=== PATIENT | male | born 1945 | race Caucasian/White ===

== ENCOUNTER → 2016-11-14 | Outpatient (CLI) | payer MEDICARE, OTHER | END | disposition home or self-care (01) | LOC: MW.CHIM 08:06 | PROVIDERS: ATTEND Internal Medicine | DX: Z12.5 Encounter for screening for malignant neoplasm of prostate (principal); E11.9 Type 2 diabetes mellitus without complications; E78.5 Hyperlipidemia, unspecified; I10 Essential (primary) hypertension; N40.0 Benign prostatic hyperplasia without lower urinary tract symptoms; D64.9 Anemia, unspecified | CPT/HCPCS: 36415; 80053; 80061; 83036; 83540; G0103 ==

== ENCOUNTER → 2016-11-15 | Outpatient (CLI) | payer MEDICARE, OTHER | LOC: MW.CHIM 08:00 | PROVIDERS: ATTEND Internal Medicine | DX: E11.65 Type 2 diabetes mellitus with hyperglycemia (principal); E78.5 Hyperlipidemia, unspecified; R91.1 Solitary pulmonary nodule; E66.9 Obesity, unspecified | CPT/HCPCS: 99214 ==

== ENCOUNTER → 2016-11-16 | Outpatient (CLI) | payer MEDICARE, OTHER ==
--- NOTE | 2016-11-16 15:54 | CT ---
EXAMINATION: CT chest without contrast HISTORY: Solitary pulmonary nodule COMPARISON: 06/23/2016 TECHNIQUE: Axial CT images obtained through the chest without contrast. Coronal and sagittal reconst ructions obtained. FINDINGS: There is a stable 7 to 8 mm pleural-based pulmonary nodule within the left lower lobe late rally. Otherwise the lungs are clear without focal consolidation. No pleural effusion or pneumothora x. The heart is normal in size without a pericardial effusion. Coronary artery calcifications are pr esent. No mediastinal lymphadenopathy or hilar fullness. No axillary lymphadenopathy. The thoracic a yehuda is normal in caliber. Central airways are clear. Colonic diverticula noted. Otherwise The visualized images of the upper abdomen appear normal. No suspicious osseous abnormalities identified. IMPRESSION: 1. Stable 8 mm pulmonary nodule within the left lower lobe, technically benign. 2. Prominent coronary artery calcifications.
== END ==
LOC: MW.DI 13:40
PROVIDERS: ATTEND Internal Medicine
DX: R91.1 Solitary pulmonary nodule (principal)
CPT/HCPCS: 71250; 71250-26

== ENCOUNTER 2017-03-01 14:08 | Emergency (ER) | payer MEDICARE, OTHER ==
--- NOTE | 2017-03-01 14:27 | EDM.PDOC ---
ED HPI GENERAL MEDICAL PROBLEM - General Chief Complaint: Genitourinary Problem Stated Complaint: BACK PAIN AND BLOOD IN THE URINE Time Seen by Provider: 03/01/17 14:22 Source of Information: Reports: Patient History Limitations: Reports: No Limitations - History of Present Illness INITIAL COMMENTS - FREE TEXT/NARRATIVE: HISTORY AND PHYSICAL: [] 71-year-old male presents with hematuria 3 days History of Present Illness: No injury reported. Slight lower back pain noted with this bleeding in urine. He did have some burning with urination. No blood in the urine last night Patient has history of hypertension Diabetes mellitus type 2 History of lower gastrointestinal bleeding [] Review of Systems: As per history of present illness and below otherwise all systems reviewed and negative. Past medical history: As per history of present illness and as reviewed below otherwise noncontributory. Surgical history: As per history of present illness and as reviewed below otherwise noncontributory. Social history: No reported history of drug or alcohol abuse. Family history: As per history of present illness and as reviewed below otherwise noncontributory. Physical exam: Alert and oriented gentleman, answering questions appropriately in full sentences. HEENT: Atraumatic, normocehpalic, pupils reactive, negative for conjunctival pallor or scleral icterus, mucous membranes moist, throat clear, neck supple, nontender, trachea midline. Lungs: Clear to auscultation, breath sounds equal bilaterally, chest non tender. Heart: S1S2, regular, negative for clicks, rubs, or JVD. Abdomen: Soft, nondistended, nontender. Negative for masses or hepatossplenmegaly. Negative for costovertebral tenderness. Pelvis: Stable nontender. Genitourinary: Deferred. Rectal: Deferred Extremities: Atraumatic, negative for cords or calf pain. Neurovascular unremarkable. Neuro: Awake, alert, oriented. Cranial nerves II through XII unremarkable. Cerebellum unremarkable. Motor and sensory unremarkable throughout. Exam nonfocal. Diagnostics: UA with culture[] Therapeutics: [] Impression: [] Plan: [] Definitive disposition and diagnosis as appropriate pending reevaluation and review of above. Onset: Sudden Duration: Day(s): (3) Left Lower Flank Pain Score (Numeric/FACES): 3 - Related Data Allergies Allergy/AdvReac Type Severity Reaction Status Date / Time No Known Allergies Allergy Verified 07/27/17 14:23 Home Meds: Home Meds Atenolol [Tenormin] DAILY 01/04/15 [History] Canagliflozin [Invokana] 300 DAILY 01/04/15 [History] Insulin Detemir [Levemir] 22 unit BEDTIME 01/04/15 [History] Losartan [Cozaar] DAILY 01/04/15 [History] amLODIPine Besylate [Amlodipine Besylate] DAILY 01/04/15 [History] metFORMIN [Glucophage] BID 01/04/15 [History] Ciprofloxacin HCl [Cipro] 500 mg PO Q12HR #14 tablet 03/01/17 [Rx] Past Medical History Other HEENT History: hearing aide to right ear Social & Family History - Tobacco Use Smoking Status *Q: Never Smoker Second Hand Smoke Exposure: No - Alcohol Use Days Per Week of Alcohol Use: 0 - Recreational Drug Use Recreational Drug Use: No ED ROS GENERAL - Review of Systems Review Of Systems: ROS reveals no pertinent complaints other than HPI. ED EXAM, RENAL/ - Physical Exam Exam: See Below (see dictation) Course - Vital Signs Last Recorded V/S: Last Vital Signs Temp 36.2 C 03/01/17 14:18 Pulse 96 03/01/17 14:18 Resp 16 03/01/17 14:18 BP 153/67 H 03/01/17 14:18 Pulse Ox 96 03/01/17 14:18 - Orders/Labs/Meds Orders: Active Orders 24 hr Category Date Time Status CULTURE URINE [RM] Stat Lab 03/01/17 14:35 Received Labs: Laboratory Tests 03/01/17 Range/Units 14:35 Urine Color YELLOW Urine Appearance CLEAR Urine pH 6.0 (5.0-8.0) Ur Specific Burton <= 1.005 (1.001-1.035) Urine Protein NEGATIVE (NEGATIVE) mg/dL Urine Glucose (UA) >=1000 (NEGATIVE) mg/dL Urine Ketones NEGATIVE (NEGATIVE) mg/dL Urine Occult Blood LARGE H (NEGATIVE) Urine Nitrite NEGATIVE (NEGATIVE) Urine Bilirubin NEGATIVE (NEGATIVE) Urine Urobilinogen 0.2 (<2.0) EU/dL Ur Leukocyte Esterase SMALL (NEGATIVE) Urine RBC 20-25 (0-2/HPF) Urine WBC 15-20 (0-5/HPF) Ur Epithelial Cells FEW (NONE-FEW) Urine Bacteria FEW (NEGATIVE) Departure - Departure Time of Disposition: :24 Disposition: Home, Self-Care 01 Condition: Good Clinical Impression: UTI, Urinary tract infectious disease - Discharge Information Prescriptions: Ciprofloxacin HCl [Cipro] 500 mg PO Q12HR #14 tablet Instructions: Urinary Tract Infection, Adult, [id number] Referrals: Gustavo Shea MD [Primary Care Provider] - Belén Greenfield MD [Physician] - Forms: ED Department Discharge Additional Instructions: The following information is given to patients seen in the emergency department who are being discharged to home. This information is to outline your options for follow-up care. We provide all patients seen in our emergency department with a follow-up referral. The need for follow-up, as well as the timing and circumstances, are variable depending upon the specifics of your emergency department visit. If you don't have a primary care physician on staff, we will provide you with a referral. We always advise you to contact your personal physician following an emergency department visit to inform them of the circumstance of the visit and for follow-up with them and/or the need for any referrals to a consulting specialist. The emergency department will also refer you to a specialist when appropriate. This referral assures that you have the opportunity for followup care with a specialist. All of these measure are taken in an effort to provide you with optimal care, which includes your followup. Under all circumstances we always encourage you to contact your private physician who remains a resource for coordinating your care. When calling for followup care, please make the office aware that this follow-up is from your recent emergency room visit. If for any reason you are refused follow-up, please contact the [facility] emergency department at and asked to speak to the emergency department charge nurse. You have been found to have a urinary tract infection Prescription for ciprofloxacin 500 mg twice a day 7 days electronically sent to [facility] Referral has been made to follow-up with Dr. Gin DEVINE [facility] Specialty [facility] - Urology [address] [place] [id number] - My Orders Last 24 Hours: My Active Orders 03/01/17 14:35 CULTURE URINE [RM] Stat - Assessment/Plan Last 24 Hours: My Active Orders 03/01/17 14:35 CULTURE URINE [RM] Stat
[2017-03-01 15:54] VITALS: BP 136/71
== END 2017-03-01 15:45 | disposition home or self-care (01) ==
LOC: MW.ED 14:08
DX: N39.0 Urinary tract infection, site not specified (principal); I10 Essential (primary) hypertension; E11.9 Type 2 diabetes mellitus without complications; Z79.899 Other long term (current) drug therapy
CPT/HCPCS: 81001; 87086; 87088; 87186; 99283

== ENCOUNTER 2017-06-15 13:40 | Emergency (ER) | payer MEDICARE, OTHER ==
[2017-06-15] MEDS ORDERED: Diphtheria,Pertussis(Acell),Tetanus Vaccine 0.5 ML Syringe IM ONE (14:02)
[2017-06-15] MEDS ORDERED: Lidocaine 1% 20 ML MDV INJECT ONE (14:03)
[2017-06-15] MEDS ORDERED: Bacitracin Oint 1 GM U/D Packet TOP ONE (14:03)
--- NOTE | 2017-06-15 14:29 | EDM.PDOC ---
ED HPI GENERAL MEDICAL PROBLEM - General Chief Complaint: Laceration Stated Complaint: CUT ON INDEX FINGER ON LT HAND Time Seen by Provider: 06/15/17 13:42 - History of Present Illness INITIAL COMMENTS - FREE TEXT/NARRATIVE: HISTORY AND PHYSICAL: History of present illness: Patient is a 72-year-old male who presents to the emergency room with complaints of laceration to his left index finger. He states he was putting in some osman and had cut it with a knife resulting in a U-shaped laceration in the MIP joint. She reports he is very active and does not think that glue or Steri-Strips would keep the site secured. Review of systems: As per history of present illness and below otherwise all systems reviewed and negative. Past medical history: As per history of present illness and as reviewed below otherwise noncontributory. Surgical history: As per history of present illness and as reviewed below otherwise noncontributory. Social history: No reported history of drug or alcohol abuse. Family history: As per history of present illness and as reviewed below otherwise noncontributory. Physical exam: HEENT: Atraumatic, normocephalic, pupils reactive, negative for conjunctival pallor or scleral icterus, mucous membranes moist, throat clear, neck supple, nontender, trachea midline. Lungs: Clear to auscultation, breath sounds equal bilaterally, chest nontender. Heart: S1S2, regular, negative for clicks, rubs, or JVD. Abdomen: Soft, nondistended, nontender. Negative for masses or hepatosplenomegaly. Negative for costovertebral tenderness. Pelvis: Stable nontender. Genitourinary: Deferred. Rectal: Deferred. Extremities: Moves all extremities per self negative for cords or calf pain. Neurovascular unremarkable. Skin:1.5 cm laceration, "U" shape over the MIP joint of the left index finger. No tendon involvement as the patient has good flexion and dorsiflexion. Good strength when pushing against my finger. Capillary refill less than 3 seconds. Neuro: Awake, alert, oriented. Cranial nerves II through XII unremarkable. Cerebellum unremarkable. Motor and sensory unremarkable throughout. Exam nonfocal. Diagnostics: None Therapeutics: Tetanus booster 1% lidocaine Bacitracin dressing 3 mL's of 1% lidocaine were used to anesthetize the area. The laceration was cleansed with water and chlorhexidine. The wound was irrigated with wound wash. 4-0 nylon was used. 3 interrupted stitches were done. Patient tolerated well Impression: Laceration Plan: 1. Please use the spoon splint that prevents the finger from flexing for the next 24-48 hours. After that time please be careful with your movement as I do not want the stitches to pop open. Keep the area clean and dry. Do not submerge in water for long periods of time. Monitor for signs of infection. Stitches need to be removed in 10 days. 2. Tylenol or ibuprofen as needed for pain management. 3. Follow-up with your primary care provider in the next 1-2 days. Return to the ED as needed and as discussed. Definitive disposition and diagnosis as appropriate pending reevaluation and review of above. Onset: Today Duration: Minutes: Location: Reports: Upper Extremity, Left - Related Data Allergies Allergy/AdvReac Type Severity Reaction Status Date / Time No Known Allergies Allergy Verified 06/15/17 13:51 Home Meds: Home Meds Atenolol [Tenormin] 50 mg PO DAILY 01/04/15 [History] Insulin Detemir [Levemir] 25 unit SQ BEDTIME 01/04/15 [History] Losartan [Cozaar] 50 mg PO DAILY 01/04/15 [History] amLODIPine Besylate [Amlodipine Besylate] 5 mg PO DAILY 01/04/15 [History] metFORMIN [Glucophage] 1,000 mg PO BID 01/04/15 [History] Aspirin [Lo-Dose Aspirin EC] 81 mg PO DAILY 03/01/17 [History] Canagliflozin [Invokana] 300 mg PO DAILY 03/01/17 [History] Nitroglycerin [Nitrostat] 0.4 mg SL Q5M PRN 03/01/17 [History] atorvaSTATin [Lipitor] 10 mg PO BEDTIME 03/01/17 [History] Past Medical History HEENT History: Reports: Hard of Hearing Other HEENT History: hearing aide to right ear Cardiovascular History: Reports: Angina, Stents Genitourinary History: Reports: Renal Calculus Endocrine/Metabolic History: Reports: Diabetes, Type II - Infectious Disease History Infectious Disease History: Reports: Chicken Pox, Measles, Mumps - Past Surgical History GI Surgical History: Reports: Appendectomy Social & Family History - Family History Family Medical History: Noncontributory - Tobacco Use Smoking Status *Q: Never Smoker Second Hand Smoke Exposure: No - Caffeine Use Caffeine Use: Reports: Coffee Caffeine Use Comment: 3-5 cups daily - Alcohol Use Days Per Week of Alcohol Use: 0 - Recreational Drug Use Recreational Drug Use: No ED ROS GENERAL - Review of Systems Review Of Systems: ROS reveals no pertinent complaints other than HPI. ED EXAM, SKIN/RASH Exam: See Below (See dictation) ED SKIN PROCEDURES - Laceration/Wound Repair Left Finger Lac/Wound length In cm: 1.5 Appearance: Superficial Distal NVT: Neuro & Vascular Intact, No Tendon Injury Local Anesthesia - Lidocaine (Xylocaine): 1% Plain Local Anesthetic Volume: 3cc Saline Irrigation (cc's): 30 Exploration/Debridement/Repair: Wound Explored, In a Bloodless Field, Explored to Base Suture Size: 4-0 # of Sutures: 3 Suture Type: Nylon Course - Vital Signs Last Recorded V/S: Last Vital Signs Temp 36.3 C 06/15/17 13:48 Pulse 78 06/15/17 13:48 Resp 16 06/15/17 13:48 BP 144/79 H 06/15/17 13:48 Pulse Ox 94 L 06/15/17 13:48 - Orders/Labs/Meds Orders: Active Orders 24 hr Category Date Time Status Vaccines to be Administered [RC] PER UNIT ROUTINE Care 06/15/17 14:03 Active Meds: Medications Discontinued Medications Generic Name Dose Route Start Last Admin Trade Name Ricoq PRN Reason Stop Dose Admin Bacitracin 1 dose 06/15/17 14:03 Bacitracin Oint 1 Gm TOP 06/15/17 14:04 ONETIME ONE Diphtheria/Tetanus/Acell Pertussis 0.5 ml 06/15/17 14:02 06/15/17 14:28 Adacel IM 06/15/17 14:03 0.5 ml .ONCE ONE Administration Lidocaine HCl 20 ml 06/15/17 14:03 06/15/17 14:28 Xylocaine 1% INJECT 06/15/17 14:04 20 ml ONETIME ONE Administration Departure - Departure Time of Disposition: 14:29 Disposition: Home, Self-Care 01 Clinical Impression: Laceration - Discharge Information Referrals: Gustavo Shea MD [Primary Care Provider] - Forms: ED Department Discharge Additional Instructions: My general discharge The following information is given to patients seen in the emergency department who are being discharged to home. This information is to outline your options for follow-up care. We provide all patients seen in our emergency department with a follow-up referral. The need for follow-up, as well as the timing and circumstances, are variable depending upon the specifics of your emergency department visit. If you don't have a primary care physician on staff, we will provide you with a referral. We always advise you to contact your personal physician following an emergency department visit to inform them of the circumstance of the visit and for follow-up with them and/or the need for any referrals to a consulting specialist. The emergency department will also refer you to a specialist when appropriate. This referral assures that you have the opportunity for follow-up care with a specialist. All of these measure are taken in an effort to provide you with optimal care, which includes your follow-up. Under all circumstances we always encourage you to contact your private physician who remains a resource for coordinating your care. When calling for follow-up care, please make the office aware that this follow-up is from your recent emergency room visit. If for any reason you are refused follow-up, please contact the [facility] Emergency Department at and asked to speak to the emergency department charge nurse. [facility] [address] [place] [id number] 1. Please use the spoon splint that prevents the finger from flexing for the next 24-48 hours. After that time please be careful with your movement as I do not want the stitches to pop open. Keep the area clean and dry. Do not submerge in water for long periods of time. Monitor for signs of infection. Stitches need to be removed in 7- 10 days. 2. Tylenol or ibuprofen as needed for pain management. 3. Follow-up with your primary care provider in the next 1-2 days. Return to the ED as needed and as discussed. - My Orders Last 24 Hours: My Active Orders 06/15/17 14:03 Vaccines to be Administered [RC] PER UNIT ROUTINE - Assessment/Plan Last 24 Hours: My Active Orders 06/15/17 14:03 Vaccines to be Administered [RC] PER UNIT ROUTINE
[2017-06-15 14:53] VITALS: BP 149/77
== END 2017-06-15 14:45 | disposition home or self-care (01) ==
LOC: MW.ED 13:40
DX: S61.211A Laceration without foreign body of left index finger without damage to nail, initial encounter (principal); E11.9 Type 2 diabetes mellitus without complications; Z79.4 Long term (current) use of insulin; Z79.82 Long term (current) use of aspirin; Z79.899 Other long term (current) drug therapy; Z23 Encounter for immunization; W26.0XXA Contact with knife, initial encounter
CPT/HCPCS: 12001; 90471; 90715; 99282-25; 99283

== ENCOUNTER 2017-10-08 06:41 | Day surgery (SDC) | payer MEDICARE, OTHER ==
[~2017-10-08 06:41] MED LIST: Lactated Ringers 1,000 ML IV SCH
[2017-10-08] MEDS ORDERED: Propofol 200 MG/20 ML SDV ONE (07:20)
[2017-10-08] MEDS ORDERED: fentaNYL 100 MCG/2 ML SDV ONE (07:20)
[2017-10-08] MEDS ORDERED: Midazolam 1 MG/ML 2 ML SDV ONE (07:21)
[2017-10-08] MEDS ORDERED: Bupivacaine 0.5% 30 ML SDV ONE (07:26)
[2017-10-08] MEDS ORDERED: Lidocaine 1% 20 ML MDV ONE (07:27)
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
[2017-10-08] MEDS ORDERED: Bupivacaine 0.5% 10 ML SDV ONE (07:39)
[2017-10-08] MEDS ORDERED: diphenhydrAMINE 50 MG/ML SDV ONE (08:03)
[2017-10-08] MEDS ORDERED: Ondansetron 4 MG/2 ML SDV ONE (08:03)
[2017-10-08] MEDS ORDERED: Lidocaine 2% 5 ML SDV ONE (08:03)
[2017-10-08] MEDS ORDERED: ePHEDrine 50 MG/ML SDV ONE (08:42)
--- NOTE | 2017-10-08 09:01 | PCM.OPNOTE ---
- General Post-Op/Procedure Note Date of Surgery/Procedure: 10/08/17 Operative Procedure(s): Excision 1.1 cm ulcerated scalp lesion with 3 cm layered closure Pre Op Diagnosis: Ulcerated scalp lesion Post-Op Diagnosis: Same Anesthesia Technique: General LMA (ASA II) Primary Surgeon: Guevara Handley Secondary Surgeon: Aron Lofton Fluid Replacement, Intraop: 800 EBL in mLs: 2 Condition: Good Free Text/Narrative:: Dictation [id number] CPT CODE [id number]
[2017-10-08] MEDS ORDERED: Acetaminophen/HYDROcodone 325-5 MG Tab PO PRN (09:06)
[2017-10-08] MEDS ORDERED: Lactated Ringers 1,000 ML IV SCH (09:15)
--- NOTE | 2017-10-08 10:10 | OR ---
SURGEON: Guevara Handley M.D. DATE OF PROCEDURE: 10/08/2017 OPERATION PERFORMED: Excision of 1.1 cm ulcerated scalp lesion with 3 cm layered closure. CORPORATE COMMUNICATIONS MANAGER: Dr. Rodrigues, PGY 3. ANESTHESIA: General LMA. ASA CLASSIFICATION: II. INTRAOPERATIVE FLUID REPLACEMENT: 800 mL of crystalloid. ESTIMATED BLOOD LOSS: 2 mL. DESCRIPTION OF PROCEDURE: The patient was taken to the operating room and placed on the operating table in the supine position. Time-out was called for appropriate identification of the patient and procedure. Surgical site had been marked prior to the patient entering the operating room. Following satisfactory attainment of general anesthesia with placement of an LMA, the surgical site was prepped with Betadine solution. Sterile drapes were applied. The surgical incision was then infiltrated with 1% xylocaine. The skin incision was made in an elliptical fashion completely excising the lesion in question using electrocautery. A suture was placed at the superior/anterior margin for identification purposes. Frozen section was sent off. The wound was then inspected for hemostasis and bleeding sites were electrocoagulated. The incision was closed in 2 layers approximating the subcutaneous tissue with interrupted 3-0 Vicryl and the skin with running locked 3-0 nylon. Following confirmation of the frozen section, the wound was dressed with antibiotic ointment. Sponge, needle, and instrument counts were all correct. The patient tolerated the procedure well. Following emergence from anesthesia and extubation, the patient was taken to recovery room in satisfactory condition. DUANE / DONA /[id number]
--- NOTE | 2017-10-08 10:20 | PCM48HPAN ---
Post Anesthesia Note - EVALUATION WITHIN 48HRS OF ANESTHETIC Vital Signs in Normal Range: Yes Patient Participated in Evaluation: Yes Respiratory Function Stable: Yes Airway Patent: Yes Cardiovascular Function Stable: Yes Hydration Status Stable: Yes Pain Control Satisfactory: Yes Nausea and Vomiting Control Satisfactory: Yes Mental Status Recovered: Yes Resp Rate: 17 - COMMENTS/OBSERVATIONS Free Text/Narrative:: no anesthesia problems
[2017-10-08 12:40] VITALS: BP 142/74
== END 2017-10-08 10:40 | disposition home or self-care (01) ==
LOC: MW.SDS 06:41
PROVIDERS: ATTEND Surgery
DX: C44.41 Basal cell carcinoma of skin of scalp and neck (principal); N40.0 Benign prostatic hyperplasia without lower urinary tract symptoms; I25.10 Atherosclerotic heart disease of native coronary artery without angina pectoris; E11.9 Type 2 diabetes mellitus without complications; E78.5 Hyperlipidemia, unspecified; I10 Essential (primary) hypertension; Z79.82 Long term (current) use of aspirin; Z79.899 Other long term (current) drug therapy; Z90.49 Acquired absence of other specified parts of digestive tract
CPT/HCPCS: 11622; 12032; 82962; J1200; J2250; J2405; J3010; J7120; 00300; 88305; 88331; J2704

== ENCOUNTER 2019-01-03 13:50 | Emergency (ER) | payer MEDICARE, OTHER ==
--- NOTE | 2019-01-03 14:04 | EDM.PDOC ---
ED HPI GENERAL MEDICAL PROBLEM - General Chief Complaint: ENT Problem Stated Complaint: HEARING AIDS STUCK IN EAR Time Seen by Provider: 01/03/19 13:54 Source of Information: Reports: Patient History Limitations: Reports: No Limitations - History of Present Illness INITIAL COMMENTS - FREE TEXT/NARRATIVE: HISTORY AND PHYSICAL: History of present illness: Patient is a 73-year-old male who presents to the emergency room with complaints of foreign body in the left ear. He states approximately 2 hours ago he removed his hearing aide and noticed the plastic tip was not on the hearing aid and felt it in his canal. He states his tried to remove this herself, but "I felt it going deeper". Patient denies any fever, chills, headache, change in vision, syncope or near syncope. Denies any chest pain, back pain, shortness of breath or cough. Denies any abdominal pain, nausea, vomiting, diarrhea, constipation or dysuria. Has not noted any blood in urine or stool. Patient has been eating and drinking appropriately. Review of systems: As per history of present illness and below otherwise all systems reviewed and negative. Past medical history: As per history of present illness and as reviewed below otherwise noncontributory. Surgical history: As per history of present illness and as reviewed below otherwise noncontributory. Social history: See social history for further information Family history: As per history of present illness and as reviewed below otherwise noncontributory. Physical exam: General: Well-developed and well-nourished 73-year-old male. Alert and oriented. Nontoxic appearing and in no acute distress. HEENT: Atraumatic, normocephalic, pupils equal and reactive bilaterally, negative for conjunctival pallor or scleral icterus, mucous membranes moist, foreign body noted in the left TM, right TMs normal, throat clear, neck supple, nontender, trachea midline. No drooling or trismus noted. No meningeal signs. No hot potato voice noted. Skin: Intact, warm, dry. No lesions or rashes noted. Extremities: Atraumatic, moves all extremities per self without difficulty or deficits, negative for cords or calf pain. Neurovascular unremarkable. Neuro: Awake, alert, oriented. Cranial nerves II through XII unremarkable. Cerebellum unremarkable. Motor and sensory unremarkable throughout. Exam nonfocal. Notes: Foreign body was easily removed with an alligator forcep. Post extraction, TM is normal without erythema or any evidence of trauma. Supportive care measures were reviewed and discussed. Voices understanding and is agreeable to plan of care. Denies any further questions or concerns at this time. Diagnostics: None Therapeutics: Foreign body removal Prescription: In Impression: Foreign body left ear Plan: 1. Please fix the hearing aid before putting it back in your ear. 2. Follow-up with your primary care provider as needed. Return to the ED as needed and as discussed. Definitive disposition and diagnosis as appropriate pending reevaluation and review of above. Onset: Today Duration: Hour(s): - Related Data Allergies Allergy/AdvReac Type Severity Reaction Status Date / Time No Known Allergies Allergy Verified 01/03/19 14:03 Home Meds: Home Meds Atenolol [Tenormin] 50 mg PO DAILY 01/04/15 [History] Insulin Detemir [Levemir] 22 unit SQ BEDTIME 01/04/15 [History] Losartan [Cozaar] 50 mg PO BEDTIME 01/04/15 [History] amLODIPine Besylate [Amlodipine Besylate] 5 mg PO DAILY 01/04/15 [History] metFORMIN [Glucophage] 1,000 mg PO BID 01/04/15 [History] Aspirin [Lo-Dose Aspirin EC] 81 mg PO DAILY 03/01/17 [History] Nitroglycerin [Nitrostat] 0.4 mg SL Q5M PRN 03/01/17 [History] atorvaSTATin [Lipitor] 10 mg PO BEDTIME 03/01/17 [History] Fraxiga 5 mg PO DAILY 10/03/17 [History] Ubidecarenone [Coq-10] 1 tab PO BID 10/03/17 [History] Past Medical History HEENT History: Reports: Hard of Hearing Other HEENT History: hearing aide to right ear Cardiovascular History: Reports: Angina, CAD, High Cholesterol, Hypertension, Stents Gastrointestinal History: Reports: Other (See Below) Other Gastrointestinal History: diverticulitis Genitourinary History: Reports: BPH, Renal Calculus Musculoskeletal History: Reports: Fracture Other Musculoskeletal History: hx fx collarbone as a child Neurological History: Reports: None Psychiatric History: Reports: None Endocrine/Metabolic History: Reports: Diabetes, Type II Dermatologic History: Reports: None - Infectious Disease History Infectious Disease History: Reports: Chicken Pox, Measles, Mumps - Past Surgical History Head Surgeries/Procedures: Reports: None Cardiovascular Surgical History: Reports: Coronary Artery Stent GI Surgical History: Reports: Appendectomy Musculoskeletal Surgical History: Reports: Other (See Below) Social & Family History - Family History Family Medical History: Noncontributory - Caffeine Use Caffeine Use: Reports: Coffee Caffeine Use Comment: 3-5 cups daily ED ROS ENT - Review of Systems Review Of Systems: ROS reveals no pertinent complaints other than HPI. ED EXAM, ENT - Physical Exam Exam: See Below (See dictation) Departure - Departure Time of Disposition: 14:03 Disposition: Home, Self-Care 01 Clinical Impression: Foreign body in left ear Qualifiers: Encounter type: initial encounter Qualified Code(s): T16.2XXA - Foreign body in left ear, initial encounter - Discharge Information Instructions: Ear Foreign Body, [id number] Referrals: Gustavo Shea MD [Primary Care Provider] - Forms: ED Department Discharge Additional Instructions: The following information is given to patients seen in the emergency department who are being discharged to home. This information is to outline your options for follow-up care. We provide all patients seen in our emergency department with a follow-up referral. The need for follow-up, as well as the timing and circumstances, are variable depending upon the specifics of your emergency department visit. If you don't have a primary care physician on staff, we will provide you with a referral. We always advise you to contact your personal physician following an emergency department visit to inform them of the circumstance of the visit and for follow-up with them and/or the need for any referrals to a consulting specialist. The emergency department will also refer you to a specialist when appropriate. This referral assures that you have the opportunity for follow-up care with a specialist. All of these measure are taken in an effort to provide you with optimal care, which includes your follow-up. Under all circumstances we always encourage you to contact your private physician who remains a resource for coordinating your care. When calling for follow-up care, please make the office aware that this follow-up is from your recent emergency room visit. If for any reason you are refused follow-up, please contact the [facility] Emergency Department at and asked to speak to the emergency department charge nurse. [facility] [address] [place] [address] [facility] [address] [place] [id number] 1. Please fix the hearing aid before putting it back in your ear. 2. Follow-up with your primary care provider as needed. Return to the ED as needed and as discussed.
[2019-01-03 14:06] VITALS: BP 107/84
== END 2019-01-03 14:12 | disposition home or self-care (01) ==
LOC: MW.ED 13:50
DX: T16.2XXA Foreign body in left ear, initial encounter (principal); E11.9 Type 2 diabetes mellitus without complications; I10 Essential (primary) hypertension; I48.91 Unspecified atrial fibrillation; E78.00 Pure hypercholesterolemia, unspecified; I25.10 Atherosclerotic heart disease of native coronary artery without angina pectoris; Z79.4 Long term (current) use of insulin; Z79.82 Long term (current) use of aspirin; Z79.899 Other long term (current) drug therapy
CPT/HCPCS: 69200; 99282

== ENCOUNTER 2019-11-11 06:30 | Observation (INO) | payer MEDICARE, OTHER ==
[~2019-11-11 06:30] MED LIST changes: -Lactated Ringers 1,000 ML IV SCH; +Sodium Chloride 0.9% 10 ML SDV IV PRN; +Sodium Chloride 0.9% 10 ML Syringe FLUSH PRN; +Sodium Chloride 0.9% 2.5 ML Syringe FLUSH PRN; +ceFAZolin 1 GM in Premix Bag 1 BAG IV ONE
[2019-11-11] MEDS: Lactated Ringers 1,000 ML IV SCH ×2 (07:05→18:21)
--- NOTE | 2019-11-11 07:22 | PCM.PREANE ---
Preanesthetic Assessment - Anesthesia/Transfusion/Family Hx Anesthesia History: Prior Anesthesia Without Reaction Family History of Anesthesia Reaction: No Transfusion History: No Prior Transfusion(s) Intubation History: Unknown - Review of Systems General: No Symptoms Pulmonary: No Symptoms Cardiovascular: No Symptoms Gastrointestinal: No Symptoms Neurological: No Symptoms Other: Reports: None - Physical Assessment Height: 5 ft 11 in Weight: 96.615 kg ASA Class: 3 Mental Status: Alert & Oriented x3 Airway Class: Mallampati = 2 Dentition: Reports: Normal Dentition Thyro-Mental Finger Breadths: 3 Mouth Opening Finger Breadths: 3 ROM/Head Extension: Full Lungs: Clear to Auscultation, Normal Respiratory Effort Cardiovascular: Regular Rate, Regular Rhythm - Lab Values: Laboratory Last Values POC Glucose 143 mg/dL (60-110) H 11/11/19 07:03 - Allergies Allergies/Adverse Reactions: Allergies Allergy/AdvReac Type Severity Reaction Status Date / Time No Known Allergies Allergy Verified 11/06/19 09:37 - Blood Blood Available: No - Anesthesia Plan Pre-Op Medication Ordered: None - Acknowledgements Anesthesia Type Planned: Spinal (general anesthesia back up plan) Pt an Appropriate Candidate for the Planned Anesthesia: Yes Alternatives and Risks of Anesthesia Discussed w Pt/Guardian: Yes Pt/Guardian Understands and Agrees with Anesthesia Plan: Yes PreAnesthesia Questionnaire HEENT History: Reports: Hard of Hearing Other HEENT History: hearing aide to right ear Cardiovascular History: Reports: Angina, CAD, High Cholesterol, Hypertension, Stents (x2 10-11 years ago, stress test about 3 months ago with chest tightness at peak excercize, has distal disease, walks 2-3 hours without CP or SOB) Gastrointestinal History: Reports: Other (See Below) Other Gastrointestinal History: diverticulitis Genitourinary History: Reports: BPH, Renal Calculus Musculoskeletal History: Reports: Fracture Other Musculoskeletal History: hx fx collarbone as a child Neurological History: Reports: None Psychiatric History: Reports: None Endocrine/Metabolic History: Reports: Diabetes, Type II Oncologic (Cancer) History: Reports: Basal Cell Carcinoma Other Oncologic History: removed from head Dermatologic History: Reports: None - Infectious Disease History Infectious Disease History: Reports: Chicken Pox, Measles, Mumps - Past Surgical History Cardiovascular Surgical History: Reports: Coronary Artery Stent, Other (See Below) (coronary angiogram) GI Surgical History: Reports: Appendectomy Other Musculoskeletal Surgeries/Procedures:: Patient states hes had a left knee surgery - SUBSTANCE USE Smoking Status *Q: Never Smoker Recreational Drug Use History: No - HOME MEDS Home Medications: Home Meds Insulin Detemir [Levemir] 30 unit SQ BEDTIME 01/04/15 [History] Losartan [Cozaar] 50 mg PO BEDTIME 01/04/15 [History] amLODIPine Besylate [Amlodipine Besylate] 5 mg PO QAM 01/04/15 [History] atenoloL [Tenormin] 50 mg PO QAM 01/04/15 [History] metFORMIN [Glucophage] 1,000 mg PO BID 01/04/15 [History] Aspirin [Lo-Dose Aspirin EC] 81 mg PO DAILY 03/01/17 [History] Nitroglycerin [Nitrostat] 0.4 mg SL Q5M PRN MDD 3 doses 03/01/17 [History] atorvaSTATin [Lipitor] 10 mg PO BEDTIME 03/01/17 [History] Ubidecarenone [Coq-10] 1 tab PO BID 10/03/17 [History] - CURRENT (IN HOUSE) MEDS Current Meds: Current Medications Lactated Ringer's (Ringers, Lactated) 1,000 mls @ 100 mls/hr IV ASDIRECTED IRVIN Sodium Chloride (Saline Flush) 10 ml FLUSH ASDIRECTED PRN PRN Reason: Keep Vein Open Sodium Chloride (Saline Flush) 2.5 ml FLUSH ASDIRECTED PRN PRN Reason: Keep Vein Open Sodium Chloride (Normal Saline) 10 ml IV ASDIRECTED PRN PRN Reason: IV Use Discontinued Medications Cefazolin Sodium/Dextrose 1 gm (/ Premix) 50 mls @ 100 mls/hr IV ONCALL ONE Stop: 11/04/19 00:34
[2019-11-11] MEDS ORDERED: fentaNYL 100 MCG/2 ML SDV ONE (07:25)
[2019-11-11] MEDS ORDERED: Midazolam 1 MG/ML 2 ML SDV ONE (07:25)
[2019-11-11] MEDS ORDERED: ePHEDrine 50 MG/ML SDV ONE (07:31)
[2019-11-11] MEDS ORDERED: Sodium Chloride 0.9% 20 ML ONE (07:31)
[2019-11-11] MEDS ORDERED: Propofol 200 MG/20 ML SDV ONE (08:36)
[2019-11-11] MEDS ORDERED: Belladonna Alkaloids/Opium 16.2-30 MG Supp RECTAL PRN (09:58)
[2019-11-11 10:36] LABS: POTASSIUM,K 4.2 mmol/L (3.5-5.1)
--- NOTE | 2019-11-11 10:44 | PCM.POSTAN ---
POST ANESTHESIA ASSESSMENT - MENTAL STATUS Mental Status: Alert, Oriented - VITAL SIGNS Vital Signs: Last Vital Signs Temp 36.4 C 11/11/19 09:52 Pulse 50 L 11/11/19 10:32 Resp 10 L 11/11/19 10:32 BP 129/62 11/11/19 10:32 Pulse Ox 97 11/11/19 10:32 - RESPIRATORY Respiratory Status: Respiratory Rate WNL, Airway Patent, O2 Saturation Stable - CARDIOVASCULAR CV Status: Pulse Rate WNL, Blood Pressure Stable - GASTROINTESTINAL GI Status: No Symptoms - PAIN Pain Score: 0 - POST OP HYDRATION Hydration Status: Adequate & Stable - OBSERVATIONS Free Text/Narrative:: No anesthesia problems
[2019-11-11] MEDS: Bacitracin Oint 28.35 GM Tube TOP SCH ×2 (15:55→21:41)
--- NOTE | 2019-11-11 16:01 | OR ---
SURGEON: Belén Greenfield M.D. 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 OPERATION: Transurethral resection of the prostate. DESCRIPTION OF PROCEDURE: The patient was given spinal anesthesia. He was placed in dorsal lithotomy position, prepped and draped in sterile drapes. The 26-Kyrgyz resectoscope was introduced in the bladder without difficulty after the meatus was cut. The prostate, which was relatively small, was resected all the way down to the capsule in almost 90% of the space. At the end, all prostate chips were removed. Bleeding points were fulgurated. A 22 three-way Vela catheter was placed in with 40 mL in the balloon. Estimated blood loss under 100 mL. The patient tolerated the procedure well and was moved to recovery room in good condition. RACHEL / DONA /[phone]
[2019-11-11] MEDS: Nitroglycerin 0.4 MG Tab.SL SL PRN ×2 (16:24→16:34)
[2019-11-11] MEDS ORDERED: Acetaminophen 325 MG Tab PO PRN (16:27)
[2019-11-11] MEDS ORDERED: Aspirin 81 MG Tab.Chew PO ONE (17:51)
--- NOTE | 2019-11-11 19:15 | PCM.CONS ---
H&P History of Present Illness - General Date of Service: 11/11/19 Admit Problem/Dx: Admission Diagnosis/Problem Admission Diagnosis/Problem Urinary retention due to benign prostatic hyperplasia - History of Present Illness Initial Comments - Free Text/Narative: Patient is a 74 y/o M with PMH of HTN, DM, CAD, remote h/o cardiac stent ( 10 years back), recent stress test 08/25 done which required cardiac cath, cardiac cath reveled "some occlusion" which would eventually need to have a stent put in near future. Per patient stenting was postponed as patient wanted undergo TURP surgery without any delay, and jack prizer was comfortable to wait post procedure as blockage wasn't in major vessels.. Patient has been admitted S/P TURP secondary to BPH, chronic prostatitis. Patient tolerated procedure well, post op, patient developed some chest/epigastric discomfort. Primary team was notified, EKG, troponin was obtained, and hospitalist service was consulted for Chest pain secondary to concern of ACS. Patient was found to be hypertensive with SBP in 190s, Nitrate was administered, after which blood pressure and chest pain improved as well. 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 1st Troponin was negative, Patient has been compliant with his medications, has a very active life style, denied smoking, drinking, drug abuse. Currently no ongoing chest pain. Resting comfortably. Onset of Symptoms: Reports: Sudden Duration of Symptoms: Reports: Minutes: - Related Data Allergies/Adverse Reactions: Allergies Allergy/AdvReac Type Severity Reaction Status Date / Time No Known Allergies Allergy Verified 11/11/19 17:50 Home Medications: Home Meds Insulin Detemir [Levemir] 30 unit SQ BEDTIME 01/04/15 [History] Losartan [Cozaar] 50 mg PO BEDTIME 01/04/15 [History] amLODIPine Besylate [Amlodipine Besylate] 5 mg PO QAM 01/04/15 [History] atenoloL [Tenormin] 50 mg PO QAM 01/04/15 [History] metFORMIN [Glucophage] 1,000 mg PO BID 01/04/15 [History] Aspirin [Lo-Dose Aspirin EC] 81 mg PO DAILY 03/01/17 [History] Nitroglycerin [Nitrostat] 0.4 mg SL Q5M PRN MDD 3 doses 03/01/17 [History] atorvaSTATin [Lipitor] 10 mg PO BEDTIME 03/01/17 [History] Ubidecarenone [Coq-10] 1 tab PO BID 10/03/17 [History] Past Medical History HEENT History: Reports: Hard of Hearing Other HEENT History: hearing aide to right ear Cardiovascular History: Reports: Angina, CAD, High Cholesterol, Hypertension, Stents Gastrointestinal History: Reports: Other (See Below) Other Gastrointestinal History: diverticulitis Genitourinary History: Reports: BPH, Renal Calculus Musculoskeletal History: Reports: Fracture Other Musculoskeletal History: hx fx kayleen as a child Neurological History: Reports: None Psychiatric History: Reports: None Endocrine/Metabolic History: Reports: Diabetes, Type II Oncologic (Cancer) History: Reports: Basal Cell Carcinoma Other Oncologic History: removed from head Dermatologic History: Reports: None - Infectious Disease History Infectious Disease History: Reports: Chicken Pox, Measles, Mumps - Past Surgical History Head Surgeries/Procedures: Reports: None Cardiovascular Surgical History: Reports: Coronary Artery Stent, Other (See Below) Other Cardiovascular Surgeries/Procedures: Angioplasty with 2 stents placed over 10 years ago, denies chest pain and SOB GI Surgical History: Reports: Appendectomy Musculoskeletal Surgical History: Reports: Other (See Below) Other Musculoskeletal Surgeries/Procedures:: Patient states hes had a left knee surgery Dermatological Surgical History: Reports: Skin Biopsy Social & Family History - Family History Family Medical History: Noncontributory - Tobacco Use Smoking Status *Q: Never Smoker - Caffeine Use Caffeine Use: Reports: Coffee Caffeine Use Comment: 3-5 cups daily - Recreational Drug Use Recreational Drug Use: No Drug Use in Last 12 Months: No H&P Review of Systems - Review of Systems: Review Of Systems: See Below General: Denies: Fever, Chills, Malaise Pulmonary: Denies: Shortness of Breath, Wheezing, Pleuritic Chest Pain Cardiovascular: Denies: Chest Pain, Palpitations, Dyspnea on Exertion Gastrointestinal: Denies: Abdominal Pain, Anorexia, Black Stool Genitourinary: Reports: Pain. Denies: Discharge, Retention, Flank Pain Psychiatric: Denies: Confusion, Depression, Mood Lability Neurological: Denies: Confusion, Dizziness, Headache Hematologic/Lymphatic: Denies: Anemia, Easy Bleeding, Easy Bruising Exam - Exam Exam: See Below - Vital Signs Vital Signs: Last Vital Signs Temp 36.8 C 11/11/19 19:09 Pulse 55 L 11/11/19 19:09 Resp 16 11/11/19 19:09 BP 156/77 H 11/11/19 19:09 Pulse Ox 96 11/11/19 19:09 Weight: 96.615 kg - Exam Quality Assessment: Supplemental Oxygen General: Alert, Oriented Neck: Supple, Trachea Midline Lungs: Clear to Auscultation, Normal Respiratory Effort Cardiovascular: Regular Rate, Regular Rhythm, Normal S1, Normal S2 Extremities: Normal Inspection, Normal Range of Motion Skin: Warm, Intact - Patient Data Lab Results Last 24 hrs: Laboratory Results - last 24 hr 11/11/19 11/11/19 11/11/19 Range/Units 07:03 10:14 16:51 Sodium 143 (136-148) mmol/L Potassium 4.2 (3.5-5.1) mmol/L POC Glucose 143 H (60-110) mg/dL Troponin I < 0.050 (0.000-0.056) ng/mL Result Diagrams: 11/11/19 19:51 11/11/19 19:51 Sepsis Event Note - Evaluation Sepsis Screening Result: No Definite Risk - Focused Exam Vital Signs: Vital Signs Temp Pulse Resp BP BP BP Pulse Ox 11/11/19 19:09 36.8 C 55 L 16 156/77 H 96 11/11/19 16:34 60 18 155/83 H 142/76 H 95 11/11/19 16:24 62 16 196/95 H 155/83 H 92 L 11/11/19 16:00 36.4 C 54 L 17 196/95 H 96 11/11/19 14:50 36.2 C 52 L 18 161/72 H 97 11/11/19 13:50 36.2 C 53 L 18 161/77 H 97 11/11/19 13:20 35.8 C L 57 L 18 167/81 H 97 11/11/19 12:50 35.8 C L 53 L 18 155/74 H 96 11/11/19 12:20 35.7 C L 52 L 18 158/79 H 96 11/11/19 11:50 35.7 C L 53 L 18 138/82 97 11/11/19 11:35 35.5 C L 52 L 17 138/80 97 11/11/19 11:20 35.5 C L 52 L 16 135/72 95 11/11/19 11:05 35.5 C L 51 L 16 143/63 H 97 11/11/19 10:50 35.5 C L 52 L 16 145/70 H 97 11/11/19 10:32 50 L 10 L 129/62 97 11/11/19 10:27 48 L 12 128/62 97 11/11/19 10:22 49 L 15 122/54 L 99 11/11/19 10:17 50 L 11 L 129/58 L 99 11/11/19 10:12 53 L 8 L 121/65 98 11/11/19 10:08 56 L 14 118/55 L 100 11/11/19 10:02 49 L 13 113/59 L 99 11/11/19 09:57 50 L 12 107/51 L 99 11/11/19 09:52 36.4 C 49 L 12 103/56 L 99 Date Exam was Performed: 11/11/19 Time Exam was Performed: 22:13 Consult PN Assessment/Plan Procedures: Procedures ASSAY OF CREATININE (05/14/19) ASSAY OF FERRITIN (10/04/17) ASSAY OF FREE THYROXINE (03/15/17) ASSAY OF IRON (10/04/17) ASSAY OF UREA NITROGEN (05/14/19) ASSAY THYROID STIM HORMONE (03/15/17) CARDIOVASCULAR STRESS TEST (09/04/19) CLEAR OUTER EAR CANAL (01/03/19) COMPLETE CBC W/AUTO DIFF WBC (09/17/19) COMPREHEN METABOLIC PANEL (09/17/19) CT ABD & PELV 1/> REGNS (05/15/19) CT ABD & PELV W/CONTRAST (05/13/15) CT THORAX W/DYE (05/13/15) CT THORAX W/O DYE (11/16/16) DESTRUCT PREMALG LESION (03/16/16) EMERGENCY DEPT VISIT (01/03/19) EMERGENCY DEPT VISIT (03/01/17) EXC S/N/H/F/G MAL+MRG 1.1-2 (10/08/17) EXTRACRANIAL BILAT STUDY (09/25/19) GLUCOSE BLOOD TEST (10/08/17) GLYCOSYLATED HEMOGLOBIN TEST (10/21/19) HT MUSCLE IMAGE SPECT MULT (09/04/19) IIV4 VACC NO PRSV 0.5 ML IM (06/06/16) IMMUNIZATION ADMIN (06/15/17) INTMD RPR S/A/T/EXT 2.6-7.5 (10/08/17) LIPID PANEL (05/20/19) METABOLIC PANEL TOTAL CA (05/13/18) MICROBE SUSCEPTIBLE JOYCELYN (11/04/19) MRI ABDOMEN W/O & W/DYE (12/02/15) MRI ABDOMEN W/O DYE (06/23/16) OCCULT BLOOD FECES (01/05/14) OFFICE/OUTPATIENT VISIT EST (05/31/19) OFFICE/OUTPATIENT VISIT EST (05/20/19) OFFICE/OUTPATIENT VISIT EST (05/15/19) OFFICE/OUTPATIENT VISIT NEW (09/17/19) OFFICE/OUTPATIENT VISIT NEW (03/16/16) PATH CONSULT INTRAOP 1 BLOC (10/08/17) PROTHROMBIN TIME (09/17/19) ROUTINE VENIPUNCTURE (10/21/19) RPR S/N/AX/GEN/TRNK 2.5CM/< (06/15/17) TDAP VACCINE 7 YRS/> IM (06/15/17) THER/PROPH/DIAG IV INF INIT (06/29/19) TISSUE EXAM BY PATHOLOGIST (10/08/17) UPR/L XTREMITY ART 2 LEVELS (09/25/19) URINALYSIS AUTO W/SCOPE (08/28/19) URINE BACTERIA CULTURE (11/04/19) URINE CULTURE/COLONY COUNT (11/04/19) US TRANSRECTAL (05/14/19) (1) S/P TURP SNOMED Code(s): 773790861, 42457665, 409305893 Code(s): Z90.79 - ACQUIRED ABSENCE OF OTHER GENITAL ORGAN(S) Current Visit : Yes (2) CAD (coronary artery disease) SNOMED Code(s): 03132303 Code(s): I25.10 - ATHSCL HEART DISEASE OF [place] CORONARY ARTERY W/O ANG PCTRS Current Visit: Yes (3) HTN (hypertension) SNOMED Code(s): 75172889 Code(s): I10 - ESSENTIAL (PRIMARY) HYPERTENSION Current Visit: Yes (4) Chest pain SNOMED Code(s): 22858172 Code(s): R07.9 - CHEST PAIN, UNSPECIFIED Current Visit: Yes (5) Diabetes mellitus SNOMED Code(s): 29557847 Code(s): E11.9 - TYPE 2 DIABETES MELLITUS WITHOUT COMPLICATIONS Current Visit: No Problem List Initiated/Reviewed/Updated: Yes My Orders Last 24 Hours: My Active Orders 11/11/19 19:50 TROPONIN I [CHEM] Routine Plan: 74 y/o M admitted s/p TURP Developed chest pain which has resolved EKG noted, 1st trop negative Will trend another set of troponin Administer aspirin 81 mg Will put patient on tele Recommend cardiac diet Will check CBC, BMP, Mg, Phos HbA1c 7.7, Obtain TSH and Lipid profile Cont IV antibiotics per primary team Post surgical care per primary team cont home meds
[2019-11-11 20:24] LABS: BLOOD UREA NITROGEN,BUN 17 mg/dL (7.0-18.0); CARBON DIOXIDE,CO2 24.3 mmol/L (21.0-32.0); CHLORIDE,CL 100 mmol/L (98-107); GLUCOSE RANDOM 191 mg/dL (74-106); POTASSIUM,K 4.3 mmol/L (3.5-5.1); SODIUM,NA 135 mmol/L (136-148)
[2019-11-11] MEDS ORDERED: atorvaSTATin 10 MG Tab PO SCH (21:00)
[2019-11-11] MEDS ORDERED: Losartan 50 MG Tab PO SCH (21:00)
[2019-11-11] MEDS ORDERED: Insulin Detemir 100 Units/ML 3 ML Pen SUBCUT SCH (21:00)
[2019-11-11] MEDS ORDERED: Magnesium Oxide 400 MG Tab PO ONE (21:08)
[2019-11-11] MEDS: metFORMIN 500 MG Tab PO SCH (21:33)
[2019-11-11] MEDS ORDERED: Famotidine 20 MG Tab PO ONE (21:47)
[2019-11-11] MEDS ORDERED: Calcium Carbonate 500 MG Tab.Chew PO PRN (22:19)
[2019-11-12] MEDS: Nitroglycerin 0.4 MG Tab.SL SL PRN (06:59)
[2019-11-12] MEDS: Bacitracin Oint 28.35 GM Tube TOP SCH ×2 (07:01→14:16)
[2019-11-12] MEDS: Insulin Aspart 100 Units/ML 3 ML Pen SUBCUT SCH ×2 (07:06→12:14)
[2019-11-12] MEDS: metFORMIN 500 MG Tab PO SCH (08:45)
[2019-11-12] MEDS ORDERED: Aspirin 81 MG Tab.EC PO SCH (09:00)
[2019-11-12] MEDS ORDERED: Atenolol 50 MG Tab PO SCH (09:00)
[2019-11-12] MEDS ORDERED: amLODIPine 5 MG Tab PO SCH (09:00)
[2019-11-12] MEDS ORDERED: Alum Hydrox/Mag Hydrox/Simeth 15 ML, Lidocaine 2% 5 ML PO ONE ×2 (09:12)
--- NOTE | 2019-11-12 09:54 | PCM.CONSN ---
- General Info Date of Service: 11/12/19 Admission Dx/Problem (Free Text): Admission Diagnosis/Problem Admission Diagnosis/Problem Urinary retention due to benign prostatic hyperplasia Subjective Update: Feeling somewhat improved from last night. had mild chest pain early this morning, given some Nitro. Reports it is middle of his chest, moved up a little. No associated symptoms. Does not worsen with activity. Some abdominal bloating. Functional Status: Reports: Pain Controlled, Tolerating Diet - Review of Systems Pulmonary: Reports: No Symptoms. Denies: Shortness of Breath Cardiovascular: Reports: Chest Pain Gastrointestinal: Reports: No Symptoms. Denies: Abdominal Pain, Nausea, Vomiting Genitourinary: Reports: No Symptoms. Denies: Dysuria, Frequency, Burning Skin: Reports: No Symptoms Neurological: Reports: No Symptoms Psychiatric: Reports: No Symptoms - Patient Data Vitals - Most Recent: Last Vital Signs Temp 99.9 F 11/12/19 08:00 Pulse 62 11/12/19 08:46 Resp 18 11/12/19 08:00 BP 162/79 H 11/12/19 08:46 Pulse Ox 95 11/12/19 08:00 Weight - Most Recent: 96.615 kg I&O - Last 24 Hours: Intake & Output 11/11/19 11/12/19 11/12/19 22:59 06:59 14:59 Intake Total 1177 1500 Balance 1177 1500 Lab Results Last 24 Hours: Laboratory Results - last 24 hr 11/11/19 11/11/19 11/11/19 Range/Units 10:14 16:51 19:51 WBC (4.0-11.0) K/uL RBC (4.50-5.90) M/uL Hgb (13.0-17.0) g/dL Hct (38.0-50.0) % MCV (80.0-98.0) fL MCH (27.0-32.0) pg MCHC (31.0-37.0) g/dL RDW Std Deviation (28.0-62.0) fl RDW Coeff of Nicole (11.0-15.0) % Plt Count (150-400) K/uL MPV (7.40-12.00) fL Neut % (Auto) (48.0-80.0) % Lymph % (Auto) (16.0-40.0) % [place] % (Auto) (0.0-15.0) % Eos % (Auto) (0.0-7.0) % Baso % (Auto) (0.0-1.5) % Neut # (Auto) (1.4-5.7) K/uL Lymph # (Auto) (0.6-2.4) K/uL [place] # (Auto) (0.0-0.8) K/uL Eos # (Auto) (0.0-0.7) K/uL Baso # (Auto) (0.0-0.1) K/uL Nucleated RBC % /100WBC Nucleated RBCs # K/uL Sodium 143 (136-148) mmol/L Potassium 4.2 (3.5-5.1) mmol/L Chloride (98-107) mmol/L Carbon Dioxide (21.0-32.0) mmol/L BUN (7.0-18.0) mg/dL Creatinine (0.8-1.3) mg/dL Est Cr Clr Drug Dosing mL/min Estimated GFR (MDRD) ml/min Glucose (74-106) mg/dL POC Glucose (60-110) mg/dL Calcium (8.5-10.1) mg/dL Phosphorus (2.6-4.7) mg/dL Magnesium (1.8-2.4) mg/dL Troponin I < 0.050 < 0.050 (0.000-0.056) ng/mL Triglycerides (0-200) mg/dL Cholesterol (50-200) mg/dL LDL Cholesterol, Calc (60-180) mg/dL VLDL Cholesterol (5-55) mg/dL HDL Cholesterol (40-60) mg/dL Cholesterol/HDL Ratio (3.3-6.0) TSH 3rd Generation (0.36-3.74) uIU/mL 11/11/19 11/11/19 11/11/19 Range/Units 19:51 19:51 19:51 WBC 14.63 H (4.0-11.0) K/uL RBC 5.47 (4.50-5.90) M/uL Hgb 15.8 (13.0-17.0) g/dL Hct 46.4 (38.0-50.0) % MCV 84.8 (80.0-98.0) fL MCH 28.9 (27.0-32.0) pg MCHC 34.1 (31.0-37.0) g/dL RDW Std Deviation 41.7 (28.0-62.0) fl RDW Coeff of Nicole 14 (11.0-15.0) % Plt Count 323 (150-400) K/uL MPV 9.90 (7.40-12.00) fL Neut % (Auto) 81.9 H (48.0-80.0) % Lymph % (Auto) 10.6 L (16.0-40.0) % [place] % (Auto) 6.8 (0.0-15.0) % Eos % (Auto) 0.5 (0.0-7.0) % Baso % (Auto) 0.2 (0.0-1.5) % Neut # (Auto) 12.0 H (1.4-5.7) K/uL Lymph # (Auto) 1.6 (0.6-2.4) K/uL [place] # (Auto) 1.0 H (0.0-0.8) K/uL Eos # (Auto) 0.1 (0.0-0.7) K/uL Baso # (Auto) 0.0 (0.0-0.1) K/uL Nucleated RBC % 0.0 /100WBC Nucleated RBCs # 0 K/uL Sodium 135 L (136-148) mmol/L Potassium 4.3 (3.5-5.1) mmol/L Chloride 100 (98-107) mmol/L Carbon Dioxide 24.3 (21.0-32.0) mmol/L BUN 17 (7.0-18.0) mg/dL Creatinine 1.0 (0.8-1.3) mg/dL Est Cr Clr Drug Dosing 70.07 mL/min Estimated GFR (MDRD) > 60.0 ml/min Glucose 191 H (74-106) mg/dL POC Glucose (60-110) mg/dL Calcium 8.6 (8.5-10.1) mg/dL Phosphorus 3.7 (2.6-4.7) mg/dL Magnesium 1.5 L (1.8-2.4) mg/dL Troponin I (0.000-0.056) ng/mL Triglycerides 86 (0-200) mg/dL Cholesterol 119 (50-200) mg/dL LDL Cholesterol, Calc 53 L (60-180) mg/dL VLDL Cholesterol 17 (5-55) mg/dL HDL Cholesterol 49 (40-60) mg/dL Cholesterol/HDL Ratio 2.4 L (3.3-6.0) TSH 3rd Generation 1.39 (0.36-3.74) uIU/mL 11/11/19 11/12/19 Range/Units 21:38 07:05 WBC (4.0-11.0) K/uL RBC (4.50-5.90) M/uL Hgb (13.0-17.0) g/dL Hct (38.0-50.0) % MCV (80.0-98.0) fL MCH (27.0-32.0) pg MCHC (31.0-37.0) g/dL RDW Std Deviation (28.0-62.0) fl RDW Coeff of Nicole (11.0-15.0) % Plt Count (150-400) K/uL MPV (7.40-12.00) fL Neut % (Auto) (48.0-80.0) % Lymph % (Auto) (16.0-40.0) % [place] % (Auto) (0.0-15.0) % Eos % (Auto) (0.0-7.0) % Baso % (Auto) (0.0-1.5) % Neut # (Auto) (1.4-5.7) K/uL Lymph # (Auto) (0.6-2.4) K/uL [place] # (Auto) (0.0-0.8) K/uL Eos # (Auto) (0.0-0.7) K/uL Baso # (Auto) (0.0-0.1) K/uL Nucleated RBC % /100WBC Nucleated RBCs # K/uL Sodium (136-148) mmol/L Potassium (3.5-5.1) mmol/L Chloride (98-107) mmol/L Carbon Dioxide (21.0-32.0) mmol/L BUN (7.0-18.0) mg/dL Creatinine (0.8-1.3) mg/dL Est Cr Clr Drug Dosing mL/min Estimated GFR (MDRD) ml/min Glucose (74-106) mg/dL POC Glucose 170 H 141 H (60-110) mg/dL Calcium (8.5-10.1) mg/dL Phosphorus (2.6-4.7) mg/dL Magnesium (1.8-2.4) mg/dL Troponin I (0.000-0.056) ng/mL Triglycerides (0-200) mg/dL Cholesterol (50-200) mg/dL LDL Cholesterol, Calc (60-180) mg/dL VLDL Cholesterol (5-55) mg/dL HDL Cholesterol (40-60) mg/dL Cholesterol/HDL Ratio (3.3-6.0) TSH 3rd Generation (0.36-3.74) uIU/mL Med Orders - Current: Current Medications Acetaminophen (Tylenol) 650 mg PO Q4H PRN PRN Reason: Pain Last Admin: 11/11/19 17:11 Dose: 325 mg Amlodipine Besylate (Norvasc) 5 mg PO QAM [facility] Last Admin: 11/12/19 08:46 Dose: 5 mg Aspirin (Halfprin) 81 mg PO DAILY [facility] Last Admin: 11/12/19 08:45 Dose: 81 mg Atenolol (Tenormin) 50 mg PO QAM [facility] Last Admin: 11/12/19 08:46 Dose: 50 mg Atorvastatin Calcium (Lipitor) 10 mg PO BEDTIME [facility] Last Admin: 11/11/19 21:34 Dose: 10 mg Bacitracin (Bacitracin Oint) 1 gm TOP TID [facility] Last Admin: 11/12/19 07:01 Dose: 1 gm Belladonna Alkaloids/Opium (B & O Supprettes No. 15a) 1 supp RECTAL Q6H PRN PRN Reason: Bladder Spasms Calcium Carbonate/Glycine (Tums) 500 mg PO Q2HR PRN PRN Reason: Indigestion Insulin Aspart (Novolog) 0 unit SUBCUT TIDAC [facility]; Protocol Last Admin: 11/12/19 07:06 Dose: Not Given Insulin Detemir (Levemir) 15 unit SUBCUT BEDTIME [facility] Last Admin: 11/11/19 21:40 Dose: 15 units Losartan Potassium (Cozaar) 50 mg PO BEDTIME [facility] Last Admin: 11/11/19 21:34 Dose: 50 mg Metformin HCl (Glucophage) 1,000 mg PO BID [facility] Last Admin: 11/12/19 08:45 Dose: 1,000 mg Nitroglycerin (Nitrostat) 0.4 mg SL Q5M PRN PRN Reason: Chest Pain Last Admin: 11/12/19 06:59 Dose: 0.4 mg Sodium Chloride (Saline Flush) 10 ml FLUSH ASDIRECTED PRN PRN Reason: Keep Vein Open Sodium Chloride (Saline Flush) 2.5 ml FLUSH ASDIRECTED PRN PRN Reason: Keep Vein Open Sodium Chloride (Normal Saline) 10 ml IV ASDIRECTED PRN PRN Reason: IV Use Discontinued Medications Aspirin (Aspirin) 81 mg PO ONETIME ONE Stop: 11/11/19 17:52 Last Admin: 11/11/19 18:21 Dose: 81 mg Al Hydroxide/Mg Hydroxide 15 (ml/ Lidocaine HCl 5 ml) 0 ml PO ONETIME ONE Stop: 11/12/19 09:13 Ephedrine Sulfate (Ephedrine Sulfate) Confirm Administered Dose 50 mg .ROUTE .STK-MED ONE Stop: 11/11/19 07:32 Famotidine (Pepcid) 20 mg PO ONETIME ONE Stop: 11/11/19 21:48 Last Admin: 11/11/19 21:57 Dose: 20 mg Fentanyl (Sublimaze) Confirm Administered Dose 100 mcg .ROUTE .STK-MED ONE Stop: 11/11/19 07:26 Cefazolin Sodium/Dextrose 1 gm (/ Premix) 50 mls @ 100 mls/hr IV ONCALL ONE Stop: 11/04/19 00:34 Lactated Ringer's (Ringers, Lactated) 1,000 mls @ 100 mls/hr IV ASDIRECTED [facility] Last Admin: 11/11/19 18:21 Dose: 100 mls/hr Sodium Chloride (Normal Saline) Confirm Administered Dose 20 mls @ as directed .ROUTE .STK-MED ONE Stop: 11/11/19 07:32 Cefazolin Sodium/Dextrose (Ancef) Confirm Administered Dose 50 mls @ as directed .ROUTE .STK-MED ONE Stop: 11/11/19 07:41 Amikacin Sulfate 500 mg/ (Sodium Chloride) 102 mls @ 204 mls/hr IV Q12H [facility] Stop: 11/11/19 22:44 Last Admin: 11/11/19 21:40 Dose: 204 mls/hr Magnesium Oxide (Magnesium Oxide) 800 mg PO ONETIME ONE Stop: 11/11/19 21:09 Last Admin: 11/11/19 21:35 Dose: 800 mg Midazolam HCl (Versed 1 Mg/Ml) Confirm Administered Dose 4 mg .ROUTE .STK-MED ONE Stop: 11/11/19 07:26 Propofol (Diprivan 20 Ml) Confirm Administered Dose 200 mg .ROUTE .STK-MED ONE Stop: 11/11/19 08:37 - Exam General: Alert, Oriented, Cooperative, No Acute Distress Lungs: Clear to Auscultation, Normal Respiratory Effort Cardiovascular: Regular Rate, Regular Rhythm, No Murmurs GI/Abdominal Exam: Normal Bowel Sounds, Soft, Non-Tender Extremities: Normal Inspection, Normal Range of Motion, Non-Tender, No Pedal Edema Neurological: No New Focal Deficit Psy/Mental Status: Alert, Normal Affect, Normal Mood Sepsis Event Note - Evaluation Sepsis Screening Result: No Definite Risk - Focused Exam Vital Signs: Vital Signs Temp Pulse Pulse Resp BP BP Pulse Ox 11/12/19 08:46 62 162/79 H 11/12/19 08:00 99.9 F 63 18 162/79 H 95 11/12/19 07:26 99.9 F 67 18 134/79 92 L 11/12/19 06:59 183/91 H 11/12/19 03:50 98.6 F 62 15 175/85 H 96 11/11/19 22:45 98.4 F 62 16 158/78 H 95 Date Exam was Performed: 11/12/19 Time Exam was Performed: 11:58 Consult PN Assessment/Plan POD#: 1 Procedures: Procedures ASSAY OF CREATININE (05/14/19) ASSAY OF FERRITIN (10/04/17) ASSAY OF FREE THYROXINE (03/15/17) ASSAY OF IRON (10/04/17) ASSAY OF UREA NITROGEN (05/14/19) ASSAY THYROID STIM HORMONE (03/15/17) CARDIOVASCULAR STRESS TEST (09/04/19) CLEAR OUTER EAR CANAL (01/03/19) COMPLETE CBC W/AUTO DIFF WBC (09/17/19) COMPREHEN METABOLIC PANEL (09/17/19) CT ABD & PELV 1/> REGNS (05/15/19) CT ABD & PELV W/CONTRAST (05/13/15) CT THORAX W/DYE (05/13/15) CT THORAX W/O DYE (11/16/16) DESTRUCT PREMALG LESION (03/16/16) EMERGENCY DEPT VISIT (01/03/19) EMERGENCY DEPT VISIT (03/01/17) EXC S/N/H/F/G MAL+MRG 1.1-2 (10/08/17) EXTRACRANIAL BILAT STUDY (09/25/19) GLUCOSE BLOOD TEST (10/08/17) GLYCOSYLATED HEMOGLOBIN TEST (10/21/19) HT MUSCLE IMAGE SPECT MULT (09/04/19) IIV4 VACC NO PRSV 0.5 ML IM (06/06/16) IMMUNIZATION ADMIN (06/15/17) INTMD RPR S/A/T/EXT 2.6-7.5 (10/08/17) LIPID PANEL (05/20/19) METABOLIC PANEL TOTAL CA (05/13/18) MICROBE SUSCEPTIBLE JOYCELYN (11/04/19) MRI ABDOMEN W/O & W/DYE (12/02/15) MRI ABDOMEN W/O DYE (06/23/16) OCCULT BLOOD FECES (01/05/14) OFFICE/OUTPATIENT VISIT EST (05/31/19) OFFICE/OUTPATIENT VISIT EST (05/20/19) OFFICE/OUTPATIENT VISIT EST (05/15/19) OFFICE/OUTPATIENT VISIT NEW (09/17/19) OFFICE/OUTPATIENT VISIT NEW (03/16/16) PATH CONSULT INTRAOP 1 BLOC (10/08/17) PROTHROMBIN TIME (09/17/19) ROUTINE VENIPUNCTURE (10/21/19) RPR S/N/AX/GEN/TRNK 2.5CM/< (06/15/17) TDAP VACCINE 7 YRS/> IM (06/15/17) THER/PROPH/DIAG IV INF INIT (06/29/19) TISSUE EXAM BY PATHOLOGIST (10/08/17) UPR/L XTREMITY ART 2 LEVELS (09/25/19) URINALYSIS AUTO W/SCOPE (08/28/19) URINE BACTERIA CULTURE (11/04/19) URINE CULTURE/COLONY COUNT (11/04/19) US TRANSRECTAL (05/14/19) (1) CAD (coronary artery disease) SNOMED Code(s): 87499160 Code(s): I25.10 - ATHSCL HEART DISEASE OF [place] CORONARY ARTERY W/O ANG PCTRS Current Visit: Yes (2) Chest pain SNOMED Code(s): 16970147 Code(s): R07.9 - CHEST PAIN, UNSPECIFIED Current Visit: Yes (3) HTN (hypertension) SNOMED Code(s): 83571823 Code(s): I10 - ESSENTIAL (PRIMARY) HYPERTENSION Current Visit: Yes (4) S/P TURP SNOMED Code(s): 220229994, 52199109, 588377877 Code(s): Z90.79 - ACQUIRED ABSENCE OF OTHER GENITAL ORGAN(S) Current Visit : Yes (5) Diabetes mellitus SNOMED Code(s): 66202082 Code(s): E11.9 - TYPE 2 DIABETES MELLITUS WITHOUT COMPLICATIONS Current Visit: No Problem List Initiated/Reviewed/Updated: Yes My Orders Last 24 Hours: My Active Orders 11/12/19 09:53 TROPONIN I [CHEM] Routine Plan: This 74 year old male admitted s/p TURP developed chest in post-operatively 1. Chest pain: - Troponin x 2 negative, repeat this am. - EKG no significant changes, no ST or T wave inversions. - Lipid panel stable, continue statin - Spoke with [employer]. Has small vessel disease, follow as outpatient. Recommends starting Imdur 30 mg today. No further intervention currently. - GI cocktail this am and Nitro helped pain Dr Sethi directly involved in care and evaluated patient. Discussed with Dr Chavez as well recommended Imdur 30 mg. I will send prescription for this. Hospitalist service will sign off. Please re-consult for any concerns.
[2019-11-12] MEDS ORDERED: Isosorbide Mononitrate 30 MG Tab.ER PO SCH (10:15)
--- NOTE | 2019-11-12 12:38 | DISCH ---
DATE OF DISCHARGE: PRIMARY CARE PHYSICIAN: Gustavo Ibarramansikatarina Jose is 74 years old. He had a TURP yesterday for chronic urinary tract infection that has been very difficult to treat or pinpoint the source of infection. His workup included CT scan with contrast that showed nothing in the upper urinary tract that would suggest it is feeding from the top. Prostate ultrasound showed a relatively small prostate with suspicious right side. He received amikacin IV for 2 days prior to coming to the hospital and had a TURP yesterday in an effort to get to the source of the infection and clear it up. Postoperatively, he remained stable, did well, was maintained on another 24 hours of amikacin. He was sent home on the first postop day, sent home with a catheter in. The urine is reasonably clear. He will be coming to see me this coming Sunday after he takes the catheter off in the morning on that day. Pathology is still pending. RACHEL / DONA /[id number]
[2019-11-12 15:27] VITALS: BP 145/75; PULSE 68
== END 2019-11-12 15:00 | disposition home or self-care (01) ==
LOC: MW.SDS 06:30 → MW.MS 10:34 → MW.SDS 10:49 → MW.MS 10:50 → UNDOADMOB 10:50
PROVIDERS: ADMIT Urology; ATTEND Urology
DX: N41.1 Chronic prostatitis (principal); B96.89 Other specified bacterial agents as the cause of diseases classified elsewhere; N39.0 Urinary tract infection, site not specified; N40.0 Benign prostatic hyperplasia without lower urinary tract symptoms; E11.9 Type 2 diabetes mellitus without complications; I25.10 Atherosclerotic heart disease of native coronary artery without angina pectoris; I10 Essential (primary) hypertension; Z79.82 Long term (current) use of aspirin; Z79.84 Long term (current) use of oral hypoglycemic drugs; Z79.899 Other long term (current) drug therapy
CPT/HCPCS: 36415; 52601; 80048; 80061; 82962; 83735; 84100; 84132; 84295; 84443; 84484; 85025; 88305; 93005; A9270; G0378; J0278; J0690; J1815; J2250; J2704; J3010; J7050; J7120; 00914